=== PATIENT | female | born 1955 | race Caucasian/White ===

== ENCOUNTER 2019-02-28 11:54 | Day surgery (SDC) | payer OTHER ==
[~2019-02-28] VITALS: Ht 170.2 cm; Wt 123.4 kg
--- NOTE | ~2019-02-28 | OR ---
[facility] [address] [place], [place] [address] Draft DATE OF OPERATION: 02/28/2019 SURGEON: aMria Del Carmen Ku MD PREOPERATIVE DIAGNOSIS: Chronic diarrhea without rectal bleeding. POSTOPERATIVE DIAGNOSIS: Normal-appearing colon except for a small hyperplastic polyp of rectum. PROCEDURE: Total colonoscopy to cecum with biopsy of rectum and cold morcellation polypectomy of rectal polyp. ANESTHESIA: Intravenous sedation, fentanyl 100 mcg, Versed 7 mg. INDICATION: This 64-year-old white woman is a patient of BAKARI Harris, in [place], [place]. She has undergone colonoscopy greater than seven years ago, which showed polyps by history. She has had some diarrhea, though recently, things have been reasonably well controlled. She has undergone stool studies earlier in the year, which were negative. She is admitted to undergo colonoscopy to better characterize the problem, understanding the risks of bleeding, infection, and perforation. FINDINGS: The prep was adequate. Complete colonoscopy was undertaken to the cecum. There was no sign of colitis or diverticular disease. She did have a hyperplastic polyp of the rectum, which was excised. Biopsies were taken of the rectum to assess for occult colitis. PROCEDURE NOTE: The patient was brought to the endoscopy suite and placed in lateral decubitus position, given intravenous sedation to the point of slurred speech and nystagmus. Digital rectal examination was normal. An Olympus video colonoscope was passed in the rectum and manipulated throughout the colon. She had no solid stool, but did have fair amount of turbid fluid. The scope was manipulated with all due care, ultimately intubating the cecum itself. The ileocecal valve and appendiceal orifice were poorly visualized but were present. Irrigation was PATIENT NAME: GONZALO DC OPERATIVE REPORT DATE OF : 59 REPORT #: [id number] PHYSICIAN: MARIA DEL CARMEN KU MD PCP: EMILEE RAMIRES MD REPORT IS CONFIDENTIAL AND NOT TO BE RELEASED WITHOUT AUTHORIZATION [facility] [address] [place], [place] [address] Draft undertaken. The scope was withdrawn from that point and examination showed no sign of abnormality until the rectosigmoid where a small hyperplastic-appearing polyp was noted. This was excised with cold morcellation technique. Additional biopsies were taken in the rectal mucosa to assess for occult colitis. The scope was then removed. The patient was taken to recovery room in good condition. CONCLUDING DIAGNOSES: 1. Hyperplastic polyp of rectum. 2. No etiology identified for colitis. Pathology pending. PLAN: Recommend Citrucel one scoop p.o. daily. She will return to the ongoing care of Dr. Friedman. If there are findings of concern on biopsies, she will be made aware, but most likely these are not significant. Repeat colonoscopy in any case in 5 years. MD NIRAV Fernandez/DOREEN /[id number] cc: NUBIA Harris [place] Copies: ~ PATIENT NAME: GONZALO DC OPERATIVE REPORT DATE OF : 59 REPORT #: [id number] PHYSICIAN: MARIA DEL CARMEN KU MD PCP: EMILEE RAMIRES MD REPORT IS CONFIDENTIAL AND NOT TO BE RELEASED WITHOUT AUTHORIZATION
[2019-02-28] MEDS ORDERED: AMITRIPTYLINE H50 MG PO (15:52)
[2019-02-28] MEDS ORDERED: ALLEGRA ALLERG180 MG PO (15:52)
[2019-02-28] MEDS ORDERED: CYMBALTA60 MG PO (15:53)
[2019-02-28] MEDS ORDERED: FISH OIL 1,0001 EAC5 PO (15:54)
[2019-02-28] MEDS ORDERED: FLONASE SENSIM5.9 ML NAS (15:57)
[2019-02-28] MEDS ORDERED: LISINOPRIL20 MG PO (15:57)
[2019-02-28] MEDS ORDERED: GLUCOSAMINE1000 MG PO (15:57)
[2019-02-28] MEDS ORDERED: METFORMIN HCL1000 MG PO (15:58)
[2019-02-28] MEDS ORDERED: ROBAXIN-750750 MG PO (15:59)
[2019-02-28] MEDS ORDERED: OMEPRAZOLE20 MG PO (15:59)
[2019-02-28] MEDS ORDERED: SIMVASTATIN20 MG PO (16:00)
[2019-02-28] MEDS ORDERED: ULTRAM50 MG PO (16:01)
[2019-02-28] MEDS ORDERED: VITAMIN D325 MC1 PO (16:02)
[2019-02-28] MEDS ORDERED: TOPROL XL100 MG PO (16:04)
[2019-02-28] MEDS ORDERED: GABAPENTIN100 MG PO (16:04)
--- NOTE | 2019-02-28 17:19 | NUR ---
02/28/19 1719 Loraine Chambers 1708-PATIENT ARRIVED TO PACU ON 2L NC PATIENT LAYING LEFT LATERAL. ABDOMEN SOFT. ENCOURAGED TO PASS GAS. PATIENT DROWSY CLOSES EYES. 1712-GLUCOSE 78. PATIENT DENIES ANY SYMPTOMS. PATIENT DENIES FEELING SYMPTOMS AT HOME. 1715-PATIENT GIVEN JUICE TO DRINK. PATIENT REPOSITIONS SELF TO BACK DENIES PAIN OR NAUSEA. 1718-PLACED ON RA. RR EVEN. AWAKE DENIES PAIN OR NAUSEA.
--- NOTE | 2019-03-04 15:22 | PATH ---
[facility] [place] [facility] [address] [place], [place] [address] Signed SPECIMEN(S): A RECTAL POLYP SPECIMEN(S): B RECTUM SPECIMEN SOURCE: A. RECTAL POLYP B. RECTUM CLINICAL HISTORY: Hx: Diarrhea, polyps. Dx: Hyperplastic polyp. MICROSCOPIC DESCRIPTION: Histologic sections of all submitted blocks are examined by light microscopy. These findings, together with the gross examination, support the pathologic diagnosis. FINAL PATHOLOGIC DIAGNOSIS: A. Rectum, polyp, polypectomy: - Hyperplastic polyp. - Negative for dysplasia or malignancy. B. Rectum, biopsy: - Rectal mucosa with mild increased intraepithelial lymphocytes, see Comment. - Negative for dysplasia or malignancy. COMMENT: Sections of the rectal biopsy (B) show two mucosal fragments, one with a mucosal lymphoid follicle. The mucosa in both show increased intraepithelial lymphocytes, which is a common finding in mucosa proximal to a lymphoid aggregate. However, no lymphoid follicle is seen in the second fragment. No infectious organisms are seen on HE stain. There is no activity, signs of chronicity, dysplasia, or malignancy. The finding is nonspecific but could represent rectal involvement by early/mild lymphocytic colitis; correlation with clinical findings is recommended. NAL:emb:C2NR GROSS DESCRIPTION: Two specimens are received in two containers, labeled "." A. The specimen, labeled ", #1," is received in formalin and consists of one lancaster soft tissue fragment that measures 0.4 cm in greatest dimension. The specimen is entirely submitted in cassette (A1). B. The specimen, labeled ", #2," is received in formalin and consists of two PATIENT NAME: GONZALO DC PATHOLOGY DATE OF : 59 REPORT #: [id number] PHYSICIAN: PRATIK DAVENPORT PCP: EMILEE RAMIRES MD REPORT IS CONFIDENTIAL AND NOT TO BE RELEASED WITHOUT AUTHORIZATION [facility] [place] [facility] [address] [place] [id number] Signed lancaster soft tissue fragment(s) that measure 0.2 and 0.3 cm in greatest dimension. The specimen is entirely submitted in cassette (B1). FB (under the direct supervision of a pathologist) The Gross Description was prepared using a voice recognition system. The report was reviewed for accuracy; however, sound-alike word errors, addition and/or deletions may occur. If there is any question about this report, please contact Client Services. PERFORMING LABORATORY: The technical component was performed by [facility] [address] (Curriculum Facilitator: Sasha Marie MD; CLIA# [id number]). [facility], [address] [place] [id number] (Curriculum Facilitator: Matthew Rivers MD; CLIA# [id number]). Diagnostician: Shana Moe MD Pathologist Electronically Signed 03/04/2019 Copies: ~ PATIENT NAME: GONZALO DC PATHOLOGY DATE OF : 59 REPORT #: [id number] PHYSICIAN: PRATIK DAVENPORT PCP: EMILEE RAMIRES MD REPORT IS CONFIDENTIAL AND NOT TO BE RELEASED WITHOUT AUTHORIZATION
== END 2019-02-28 17:55 | disposition home or self-care (01) ==
LOC: OPS 11:54 → DS 11:54 → OPS 13:00
PROVIDERS: Surgery
PROC: 0DBP8ZZ Excision of Rectum, Via Natural or Artificial Opening Endoscopic (ICD-10-PCS; principal; 2019-02-28 13:00)
DX: K62.1 Rectal polyp (principal); K52.9 Noninfective gastroenteritis and colitis, unspecified; I10 Essential (primary) hypertension; G47.30 Sleep apnea, unspecified; E11.9 Type 2 diabetes mellitus without complications; E03.9 Hypothyroidism, unspecified; Z88.0 Allergy status to penicillin; Z88.5 Allergy status to narcotic agent; Z88.8 Allergy status to other drugs, medicaments and biological substances; Z79.899 Other long term (current) drug therapy; Z79.84 Long term (current) use of oral hypoglycemic drugs; Z98.1 Arthrodesis status
CPT/HCPCS: 99153; G0500; J2250; J3010; J7121

== ENCOUNTER 2020-08-05 07:15 | Day surgery (SDC) | payer OTHER, SELFPAY ==
[~2020-08-05] VITALS: Ht 170.2 cm; Wt 131.8 kg
[~2020-08-05 07:15] MED LIST: ALLEGRA ALLERG180 MG PO; AMITRIPTYLINE H50 MG PO; CENTRUM SILVER1 EAC3 PO; COQ-10100 MG PO; CYMBALTA60 MG PO; FISH OIL 1,0001 EAC5 PO; FLONASE SENSIM5.9 ML NAS; GABAPENTIN100 MG PO; GLUCOSAMINE1000 MG PO; LISINOPRIL20 MG PO; MAGNESIUM500 MG PO; MELATONIN3 M3 PO; METFORMIN HCL1000 MG PO; MOBIC15 MG; OMEPRAZOLE20 MG PO; ROBAXIN-750750 MG PO; SIMVASTATIN20 MG PO; TOPROL XL100 MG PO; ULTRAM50 MG PO; VITAMIN D325 MC1 PO
--- NOTE | 2020-08-05 11:22 | NUR ---
08/05/20 1122 Korin Unger 1058 PT ARRIVED IN PACU SLEEPY WITH ON C/O'S. BLOOD SUGAR 124 ON ARRIVAL. 1115 RESTING. REU.
--- NOTE | 2020-08-05 11:37 | NUR ---
PT IS BACK TO DS FROM PACU. CALL LIGHT WITHIN REACH. SHE IS REQUESTING WATER AND PUDDING. DC CRITERIA DISCUSSED WITH PATIENT. NO ADDITIONAL NEEDS AT THIS TIME.
--- NOTE | 2020-08-05 12:31 | NUR ---
PT IS DOING WELL, NO PAIN. TOLERATING WATER AND PUDDING. WOULD LIKE TO GET UP TO TRY AND USE THE RESTROOM.
--- NOTE | 2020-08-05 13:52 | NUR ---
GONZALO 1345: PT IS ASSISTED UP OOB TO USE THE RESTROOM. SHE IS ABLE TO AMBULATE TO THE BATHROOM AND BACK TO HER ROOM. SHE HAS MET ALL DC CRITERIA, SHE INDICATES THAT SHE WOULD LIKE TO GO HOME. SHE IS EDUCATED ON HOW TO BEST DRESS HERSELF AND OPEN HER CURTAIN WHEN READY.
--- NOTE | 2020-08-05 14:09 | NUR ---
PT IS GIVEN VERBAL DC INSTRUCTIONS, SHE IS VERBALIZES UNDERSTANDING. NO QUESTIONS AT THIS TIME. SHE IS TAKEN TO VEHICLE VIA WC, SHE IS ABLE TO TRANSFER HERSELF FROM WC TO VEHICLE.
--- NOTE | 2020-08-06 11:31 | PATH ---
[facility] [address] [place], [place] [address] Signed SPECIMEN(S): A ENDOMETRIAL POLYP SPECIMEN SOURCE: A. ENDOMETRIAL POLYP CLINICAL HISTORY: Postmenopausal bleeding. Hysteroscopy DC. FINAL PATHOLOGIC DIAGNOSIS: Endometrial polyp, curettage: - Fragments of benign endometrial polyp(s). - Myometrium with no histopathologic abnormality. - Negative for atypical hyperplasia or malignancy. NAL:cml:C2NR MICROSCOPIC EXAMINATION: Histologic sections of all submitted blocks are examined by light microscopy. These findings, together with the gross examination, support the pathologic diagnosis. GROSS DESCRIPTION: The specimen, labeled "," and designated on the requisition "endometrial polyp," is received in formalin and consists of lancaster-pink, polypoid and soft tissue fragments measuring 4.9 x 1.6 x 1.3 cm in aggregate, with the largest polypoid fragment measuring up to 2.9 cm in greatest dimension. Largest polyp is bisected longitudinally and the specimen is submitted entirely in cassettes (A1-A3). AT (under the direct supervision of a pathologist) The Gross Description was prepared using a voice recognition system. The report was reviewed for accuracy; however, sound-alike word errors, addition and/or deletions may occur. If there is any question about this report, please contact Client Services. PERFORMING LABORATORY: The technical component was performed by [facility], [address] [place] [id number] (Medical Receptionist Assistant: Sasha Marie MD; CLIA# [id number]). [facility], [address] [address] (CLIA# [id number]). Diagnostician: Shana Moe MD PATIENT NAME: GONZALO DC PATHOLOGY DATE OF : 59 REPORT #: [id number] PHYSICIAN: INC[facility] PCP: Melissa Harrison REPORT IS CONFIDENTIAL AND NOT TO BE RELEASED WITHOUT AUTHORIZATION [address] [place], [place] [address] Signed Pathologist Electronically Signed 08/06/2020 Copies: ~ PATIENT NAME: GONZALO DC PATHOLOGY DATE OF : 59 REPORT #: [id number] PHYSICIAN: RAYOYTE PATHOLOGY PCP: Melissa Harrison REPORT IS CONFIDENTIAL AND NOT TO BE RELEASED WITHOUT AUTHORIZATION
--- NOTE | 2020-08-07 08:13 | OR ---
[facility] [address] [place], [place] [address] Signed DATE OF OPERATION: 08/05/2020 SURGEON: Martha Thibodeaux MD PREOPERATIVE DIAGNOSIS: Postmenopausal bleeding. POSTOPERATIVE DIAGNOSES: 1. Postmenopausal bleeding. 2. Endometrial polyps. ANESTHESIA: General LMA. ESTIMATED BLOOD LOSS: Minimal. DRAINS: None. INDICATIONS AND FINDINGS: The patient is a 65-year-old female, who has avoided [facility] care for a number of years. She recently had an episode of postmenopausal bleeding and evaluation in the office revealed a thickened endometrium but EMB was not possible. At the time of surgery, exam under anesthesia was normal. She had an apparently normal-sized uterus. No adnexal masses were appreciated. She is morbidly obese and her exam is compromised by this. Her uterus sounded to 9 cm. On hysteroscopy, the cavity overall appeared fairly atrophic, but with large polyps both on the anterior fundus and the posterior fundus. DESCRIPTION OF PROCEDURE: The patient was prepped and draped in the dorsal lithotomy position. Initially, the [place]-Neck speculum was placed and the Karishma was used to visualize the anterior lip of the cervix and a single-tooth tenaculum was placed. Following this, the [place]-Neck could be replaced with the longer weighted speculum. The cavity was then sounded to 9 cm. The endocervical canal was then dilated to a #8 dilator. Following this, hysteroscopy was begun using the MyoSure device. The cavity was evaluated with the polyps seen. The MyoSure device was removed and small forceps were introduced and polyps removed with the polyp forceps. These were quite large. Following this, the cavity was re-evaluated and there was small amount of remaining polypoid tissue posteriorly. The MyoSure Lite was then introduced and the remainder of the posterior polyp was excised without any Electronically Signed By: MARTHA THIBODEAUX MD 08/07/20 0813 PATIENT NAME: GONZALO DC OPERATIVE REPORT DATE OF : 59 REPORT #: [id number] PHYSICIAN: MARTHA THIBODEAUX MD PCP: Melissa Harrison REPORT IS CONFIDENTIAL AND NOT TO BE RELEASED WITHOUT AUTHORIZATION [facility] [address] [place], [place] [address] Signed difficulty. Following this, the remainder of the cavity was evaluated. There was no evidence of any other abnormality and the procedure was terminated. The instruments removed. The tenaculum was removed. There was no evidence of any ongoing bleeding. The speculum was then removed and the patient was taken to the recovery room in good condition. All sponge and needle counts were correct. Martha Thibodeaux MD PJW/MODL /[id number] cc: ASHLEY Toure Copies: Melissa Harrison ~ Electronically Signed By: MARTHA THIBODEAUX MD 08/07/20 0813 PATIENT NAME: GONZALO DC OPERATIVE REPORT DATE OF : 59 REPORT #: [id number] PHYSICIAN: MARTHA THIBODEAUX MD PCP: Melissa Harrison REPORT IS CONFIDENTIAL AND NOT TO BE RELEASED WITHOUT AUTHORIZATION
== END 2020-08-05 14:10 | disposition home or self-care (01) ==
LOC: DS 07:15
PROVIDERS: ATTEND Obstetrics & Gynecology
PROC: 0UDB8ZX Extraction of Endometrium, Via Natural or Artificial Opening Endoscopic, Diagnostic (ICD-10-PCS; principal; 2020-08-05 10:45)
DX: N84.0 Polyp of corpus uteri (principal); N95.0 Postmenopausal bleeding; N85.8 Other specified noninflammatory disorders of uterus; I10 Essential (primary) hypertension; E11.9 Type 2 diabetes mellitus without complications; K75.81 Nonalcoholic steatohepatitis (NASH); K21.9 Gastro-esophageal reflux disease without esophagitis; E78.2 Mixed hyperlipidemia; E66.01 Morbid (severe) obesity due to excess calories; Z79.1 Long term (current) use of non-steroidal anti-inflammatories (NSAID); Z79.84 Long term (current) use of oral hypoglycemic drugs; Z68.42 Body mass index [BMI] 45.0-49.9, adult; Z88.5 Allergy status to narcotic agent; Z88.0 Allergy status to penicillin; Z88.8 Allergy status to other drugs, medicaments and biological substances
CPT/HCPCS: 00952; J1100; J1644; J1885; J2250; J2405; J2704; J2765; J3010; J7121

== ENCOUNTER 2025-02-18 10:31 | Day surgery (SDC) | payer MEDICARE, OTHER ==
[~2025-02-18] VITALS: Ht 170.2 cm; Wt 113.6 kg
[~2025-02-18 10:31] MED LIST changes: +ARFORMOTER15 MCG/2 M INH; +CEFAZOLIN SODIUM 2 GM in SODIUM CHLORIDE 0.9% 100 ML IV SCH; +CLEOCIN HCL300 MG PO; +FLUCONAZOLE150 MG PO; +GLIPIZIDE ER10 MG PO; +HYDROMORPHONE HC4 MG; +IBLOOD GLUCOSE TEST STRIP 1 EA TEST VI PRN; +JARDIANCE25 MG PO; +LACTATED RINGER'S 1,000 ML IV SCH; +LANTUS100 UNITS/ SUB-Q; +LASIX20 MG PO; +LIDOCAINE HCL 1% 5 ML SDV INJ ONE; +MIDAZOLAM HCL 5 MG/5 ML VIAL IV PRN; +OLMESARTAN MEDO20 MG PO; +POTASSIUM CHLO10 MEQ PO; +fentaNYL citrate 100 MCG/2 ML VIAL IV PRN
[2025-02-18 11:00] VITALS: BP 129/60
[2025-02-18] MEDS ORDERED: MIDAZOLAM HCL 5 MG/5 ML VIAL ONE (12:08)
[2025-02-18] MEDS ORDERED: fentaNYL citrate 100 MCG/2 ML VIAL ONE (12:09)
--- NOTE | 2025-02-18 13:44 | NUR ---
02/18/25 1344 Loraine Chambers 1337-PATIENT ARRIVED TO PACU ON 4L NC RR EVEN. PATIENT AWAKE DROWSY REPORTS "CRAMPY" ENCOURAGED TO PASS GAS. SR HR 70'S IVF INFUSING. BP CUFF READJUSTED ON LEFT ARM 1342-PATIENT REPOSITIONING SELF ON BACK PASSING GAS. 1344-PATIENT PLACED ON RA 95% RR EVEN
[2025-02-18 14:36] VITALS: BP 139/82
--- NOTE | 2025-02-22 14:08 | OR ---
[facility] [address] [place], [place] [address] Signed DATE OF OPERATION: 02/18/2025 SURGEON: Maria Del Carmen Ku MD PREOPERATIVE DIAGNOSIS: Colon screening. POSTOPERATIVE DIAGNOSES: 1. Minimal sigmoid diverticulosis. 2. Small polyp, left colon. PROCEDURES: Total colonoscopy to cecum with cold snare polypectomy x1. ANESTHESIA: Intravenous sedation fentanyl 100 mcg, Versed 7 mg. INDICATION: This 70-year-old white woman is a patient of Maria G Haley PA-C from [place], [place]. She underwent colonoscopy in 2019 for complaints of diarrhea. She had no specific findings at that time. She is admitted at this time to undergo colonoscopy and she continues to have some diarrhea. The risk of bleeding, infection, and perforation related to colonoscopy were reviewed with her. She understands and wished to proceed. FINDINGS: Prep was adequate with irrigation. Complete colonoscopy was undertaken of the cecum. There was scattered diverticula of the sigmoid. There was a linear probable adenomatous polyp of the left colon at 60 cm which was excised with cold snare technique. There were no other colonic or rectal findings of concern, though she did have some hypertrophied anal papilla. DESCRIPTION OF PROCEDURE: The patient was brought to the endoscopy suite and placed in lateral decubitus position, given intravenous sedation to the point of slurred speech and nystagmus. Digital rectal examination demonstrated hypertrophied anal papilla, but no neoplasm of the anal rectum otherwise. An Olympus video colonoscope was passed in the rectum and manipulated throughout the colon noting an imperfect prep. Irrigation was undertaken as necessary. The scope was ultimately advanced to the cecum. Full intubation of the cecum was accomplished. Electronically Signed By: MARIA DEL CARMEN KU MD 02/22/25 1408 PATIENT NAME: GONZALO DC OPERATIVE REPORT DATE OF : 59 REPORT #: [id number] PHYSICIAN: MARIA DEL CARMEN KU MD PCP: MARIA G HALEY REPORT IS CONFIDENTIAL AND NOT TO BE RELEASED WITHOUT AUTHORIZATION [facility] [address] [place], [place] [address] Signed Irrigation was undertaken showing the mucosa well. Scope was withdrawn from that point. Examination throughout showed no sign of abnormality until the left colon at about 60 cm where a linear adenomatous appearing mucosal fold was noted. This was excised with cold snare technique. Specimens passed for Pathology. Further withdrawal demonstrated some diverticula of the sigmoid colon. Retroflexed view of the rectum did confirm hypertrophied anal papilla, but no sign of hemorrhoids or other problem. Scope was straightened, withdrawn and removed. The patient was taken to recovery room in good condition. CONCLUDING DIAGNOSES: 1. Minimal diverticula of sigmoid. 2. Linear adenomatous appearing polyp, left colon. PLAN: Recommend repeat colonoscopy in 10 years according to current guidelines and consider for fiber supplement such as Metamucil. She will return to the ongoing care of Maria G Haley PA-C in [place]. MD NIRAV Fernandez/DOREEN /[id number] cc: Maria G Hesham, PA-C Copies: ~ Electronically Signed By: MARIA DEL CARMEN KU MD 02/22/25 1408 PATIENT NAME: GONZALO DC ANN OPERATIVE REPORT DATE OF : 59 REPORT #: [id number] PHYSICIAN: MARIA DEL CARMEN KU MD PCP: MARIA G HALEY REPORT IS CONFIDENTIAL AND NOT TO BE RELEASED WITHOUT AUTHORIZATION
== END 2025-02-18 14:45 | disposition home or self-care (01) ==
LOC: OPS 10:31 → DS 10:31 → OPS 12:00 → DS 12:00 → OPS 14:45
PROVIDERS: ATTEND Surgery
PROC: 0DBG8ZX Excision of Left Large Intestine, Via Natural or Artificial Opening Endoscopic, Diagnostic (ICD-10-PCS; principal; 2025-02-18 12:00)
DX: Z12.11 Encounter for screening for malignant neoplasm of colon (principal); K63.5 Polyp of colon; K57.30 Diverticulosis of large intestine without perforation or abscess without bleeding; E11.9 Type 2 diabetes mellitus without complications; I10 Essential (primary) hypertension; M79.7 Fibromyalgia; E78.5 Hyperlipidemia, unspecified; K52.9 Noninfective gastroenteritis and colitis, unspecified; G47.33 Obstructive sleep apnea (adult) (pediatric); E66.01 Morbid (severe) obesity due to excess calories; Z68.39 Body mass index [BMI] 39.0-39.9, adult; Z86.0102 Personal history of hyperplastic colon polyps; Z88.0 Allergy status to penicillin; Z88.5 Allergy status to narcotic agent; Z88.6 Allergy status to analgesic agent; Z88.8 Allergy status to other drugs, medicaments and biological substances; Z79.84 Long term (current) use of oral hypoglycemic drugs; Z79.4 Long term (current) use of insulin; Z79.899 Other long term (current) drug therapy
CPT/HCPCS: 99153; G0500; J0688; J2250; J3010; J7121